=== PATIENT | female | born 1980 | race Caucasian/White ===

== ENCOUNTER 2017-07-18 00:57 | Inpatient (IN) | payer OTHER ==
[2017-07-18 03:09] LABS: HEMATOCRIT 35.6 % (36.0-47.0); HEMOGLOBIN 12.3 g/dl (12.0-16.0); MEAN CORPUSCULAR HEMOGLOBIN 33.7 pg (27.0-33.0); MEAN CORPUSCULAR HGB CONC 34.6 g/dl (32.0-36.5); MEAN CORPUSCULAR VOLUME 97.5 fl (80.0-96.0); PLATELET COUNT, AUTOMATED 196 10^3/uL (150-450); RED BLOOD COUNT 3.65 10^6/uL (4.00-5.40); RED CELL DISTRIBUTION WIDTH 13.6 % (11.5-14.5); WHITE BLOOD COUNT 10.9 10^3/uL (4.0-10.0)
[2017-07-18] MEDS ORDERED: FENTANYL 2MCG/ML ROPIVACAINE 0.2% IN 0.9% NACL 200ML IVBAG As Ordered (03:21)
[2017-07-18] MEDS ORDERED: EPIDURAL COMMENT XX (04:00)
[2017-07-18] MEDS ORDERED: REFRIGERATOR IV KEYS XX (04:00)
[2017-07-18] MEDS ORDERED: ONDANSETRON 4MG/2ML VIAL (J2405) IV ×2 (04:00→06:30)
[2017-07-18] MEDS ORDERED: NALOXONE INJ 0.4 MG/1 ML VIAL (J2310) IV (04:00)
[2017-07-18] MEDS ORDERED: EPIDURAL/PCA KEYS XX (04:00)
[2017-07-18] MEDS ORDERED: diphenhydrAMINE INJ 50MG/ML VIAL (J1200) IV (04:00)
[2017-07-18] MEDS: ONDANSETRON 4MG/2ML VIAL (J2405) IV (05:12)
[2017-07-18] MEDS ORDERED: ePHEDrine SULFATE 25 MG/5 ML(5MG/ML) SYRINGE As Ordered (05:46)
[2017-07-18 05:54] LABS: AMPHETAMINES URINE REFLEX NEGATIVE (NEGATIVE); BARBITURATES URINE REFLEX NEGATIVE (NEGATIVE); BENZODIAZEPINES URINE REFLEX NEGATIVE (NEGATIVE); CANNABINOIDS URINE REFLEX NEGATIVE (NEGATIVE); COCAINE METABOLITE URINE REFLE NEGATIVE (NEGATIVE); METHADONE URINE REFLEX NEGATIVE (NEGATIVE); OPIATES URINE REFLEX NEGATIVE (NEGATIVE); PHENCYCLIDINE URINE REFLEX NEGATIVE (NEGATIVE)
[2017-07-18] MEDS ORDERED: OXYTOCIN 30 UNITS IN 0.9% NaCl 500ML IV BAG (J2590) As Ordered (06:02)
[2017-07-18] MEDS ORDERED: DIBUCAINE 1% OINTMENT 30GM TOP (06:30)
[2017-07-18] MEDS ORDERED: MEASLES,MUMPS,RUBELLA VACCINE INJ (MMR-II) (90707) SC (06:30)
[2017-07-18] MEDS ORDERED: RHOGAM 300 MCG (1500 IU) INJ (J2790) IM (06:30)
[2017-07-18] MEDS ORDERED: METHYLERGONOVINE MALEATE 0.2 MG/ML VIAL (J2210) IM (06:30)
[2017-07-18] MEDS ORDERED: PROMETHAZINE 25 MG TAB PO (06:30)
[2017-07-18] MEDS: PRENATAL VITAMINS CHEWABLE TABLET PO (09:00)
[2017-07-18] MEDS: DOCUSATE SODIUM 100 MG CAP PO ×2 (09:00→22:07)
[2017-07-18] MEDS: IBUPROFEN 800 MG TAB PO ×2 (11:25→17:41)
[2017-07-18] MEDS: OXYTOCIN DRIP 30 UNITS in APPROPRIATE DILUENT 1 EA IV (13:15)
[2017-07-18] MEDS: FENTANYL/ROPIVACAINE/NACL BAG 200 ML EPIDURAL (13:15)
[2017-07-18] MEDS: ADACEL/BOOSTRIX VACCINE (DIPHTH/PERTUSS/ACELL/TETANUS)0.5ML SYR (90715) IM (17:40)
[2017-07-18] MEDS: ACETAMINOPHEN 500 MG TAB PO (23:40)
[2017-07-19] MEDS: IBUPROFEN 800 MG TAB PO (03:26)
[2017-07-19] MEDS: PRENATAL VITAMINS CHEWABLE TABLET PO (08:51)
[2017-07-19] MEDS: DOCUSATE SODIUM 100 MG CAP PO (08:51)
== END 2017-07-19 13:05 | disposition home or self-care (01) | DRG 775 ==
LOC: M LDO 00:57 → M LDI 02:05 → M OBS 11:59
PROVIDERS: Obstetrics & Gynecology
PROC: 10E0XZZ Delivery of Products of Conception, External Approach (ICD-10-PCS; principal; 2017-07-18)
DX: O69.82X0 Labor and delivery complicated by other cord entanglement, without compression, not applicable or unspecified (principal); Z37.0 Single live birth; Z3A.39 39 weeks gestation of pregnancy